=== PATIENT | female | born 1940 | race Caucasian/White ===

== ENCOUNTER 2017-01-22 16:59 | Inpatient (IN) | payer OTHER ==
[~2017-01-22] VITALS: Ht 170.2 cm; Wt 69.9 kg
--- NOTE | ~2017-01-22 | HC ---
[facility] [place] [address] CONSULTATION Name: SUSAN ULLOA Room #: 209-P [facility] IN ..#: [id number] Admission: 01/22/17 Attend Phys: Owen Mcnair MD Discharge: 01/26/17 Date of : 36 Report #: [id number] THIS REPORT FOR: //name// CC: Owen Carlisle CONSULTING PHYSICIAN: Mani Logan MD [facility]. ATTENDING PHYSICIAN: Fabiana Randhawa MD. REASON FOR CONSULTATION: Chronic kidney disease. HISTORY OF PRESENT ILLNESS: A 76-year-old patient with chronic atrial fibrillation and worsening cardiac performance, has known chronic kidney disease with a baseline creatinine of more or less in the range of 1.6 on admission here last year. She has seen a cnc router operator as an outpatient. She is now admitted with worsening weight loss, shortness of breath and elevating creatinine from a baseline of 1.6 up to about 2.0. This is in the setting of worsening cardiac performance and with her chronic atrial fibrillation and now markedly decreasing ejection fraction. PAST MEDICAL HISTORY: She has known coronary artery disease. She has had several stents in the past. She really cannot give an exact number and known coronary artery disease. She had ejection fraction of 45% last year, now only 15%. She has had longstanding hypertension, dyslipidemia, previous thyroidectomy and hypothyroidism. HOME MEDICATIONS: Include Xarelto, atorvastatin, Synthroid and digoxin. FAMILY HISTORY: Positive for heart disease. Negative for renal disease. SOCIAL HISTORY: , heavy smoker until the last couple of years. No alcohol. Lives by herself. REVIEW OF SYSTEMS: GENERAL: She has been feeling poorly and she has been weak. EYES: Her vision is pretty good. ENT: Hearing okay, swallows okay. No mouth sores or ulcers. ENDOCRINE: No diabetes. She does have thyroid disease as mentioned. RESPIRATORY: Easily short-winded with any exertion, chronic cough, no hemoptysis. CARDIAC: No angina. She does have a chronic irregular heartbeat, chronic atrial fibrillation as mentioned. GASTROINTESTINAL: Very poor appetite, occasional dry heaves, constipation. GENITOURINARY: Good urinary stream. No dysuria, hematuria or history of renal stones. NEUROLOGIC: Generalized weakness, but no seizure, syncope, stroke or peripheral [facility] [address] [place] [address] CONSULTATION Name: SUSAN ULLOA Room #: 209-P [facility]#: [id number] Admission: 01/22/17 Attend Phys: Owen Mcnair MD Discharge: 01/26/17 Date of : 36 Report #: [id number] neuropathy. SKELETAL: No arthritis. Does not use anti-inflammatories. PHYSICAL EXAMINATION: GENERAL: This is a thin, wasted appearing, chronically ill, elderly woman in no acute distress, somewhat hard of hearing. SKIN: Unremarkable. SKELETAL: Well developed, well nourished. HEENT: Extraocular movements are full. Vision grossly intact. Hearing is diminished. Mucous membranes are moist. Tongue, buccal mucosa benign. NECK: Supple, no carotid bruits. CHEST: Shows some fine crackles at the lung bases. HEART: Irregularly irregular. ABDOMEN: Soft and nontender. EXTREMITIES: Show no edema. There is diminishment of the peripheral pulses. LABORATORY DATA: Hemoglobin is 12.6, white count 7.9, platelets 146. Sodium 139, potassium 4.9, chloride 105, bicarbonate 26, BUN 60, creatinine 2, calcium 8.1. Transaminases are okay, but albumin is only 2.3. Troponin I was mildly elevated at 1.47. ASSESSMENT AND PLAN: 1. Chronic kidney disease. She has chronic kidney disease now exacerbated by her worsening coronary performance in the setting of somewhat atrophic kidneys on previous renal sonogram. For completeness, paraprotein studies, urine protein studies, urinalysis are ordered. I suspect there may not be much to do acutely or even chronically for her kidney problems which are certainly exacerbated by her severe chronic obstructive pulmonary disease and her worsening cardiac performance with systolic and diastolic dysfunction and arrhythmia. Some degree of palliative type care will probably be indicated in this unfortunately and I do not think chronic dialysis would be indicated here if needed. 2. Pericardial effusion. I am wondering if this may be playing some role and certainly right heart catheterization must be considered. 3. Markedly decreased ejection fraction. I believe this is pretty fixed and chronic and I do not believe heart catheterization would be indicated here either given the overall chronic looking picture. 4. History of thyroidectomy. 5. Chronic atrial fibrillation, on anticoagulation. I would restart her anticoagulation probably. <ELECTRONICALLY SIGNED> By: Henry Bustillo MD 01/29/17 1048 1103 1240 Henry Bustillo MD /nt
--- NOTE | ~2017-01-22 | EKG ---
[address] [address] ELECTROCARDIOGRAM REPORT Name: SUSAN ULLOA Room #: 209-[facility] IN M.R.#: [id number] Admission: 01/22/17 Attend Phys: Owen Mcnair MD Discharge: Date of : 36 Report #: [id number] THIS REPORT FOR: //name// [facility] Test Date: 2017-01-22 Test Time: 21:05:43 Pat Name: SUSAN ULLOA Department: Room: 209 Gender: F Desktop Administrator: fausto : 1940 Requested By: Talib Lopez Order Number: [id number] MD: Brian Herrera Measurements Intervals [place] Rate: 97 P: CT: QRS: -40 QRSD: 147 T: 147 QT: 386 QTc: 491 Interpretive Statements Atrial fibrillation Left bundle branch block Compared to ECG 01/09/2016 13:29:09 Left bundle-branch block now present Myocardial infarct finding no longer present Prolonged QT interval no longer present Electronically Signed On 01-24-2017 9:51:07 CDT by Brian Herrera [email or web address] <ELECTRONICALLY SIGNED> By: Brian Herrera MD 01/24/17 0951 04 04 Brian Herrera MD /EPI
--- NOTE | ~2017-01-22 | CARDNUC ---
[facility] [place] [address] CARDIAC NUCLEAR IMAGING REPORT Name: SUSAN ULLOA Room #: 209-P [facility]#: [id number] Admission: 01/22/17 Attend Phys: Owen Mcnair MD Discharge: Date of : 36 Date of Service: 01/24/17 1610 Report #: [id number] THIS REPORT FOR: //name// CC: Owen Carlisle DATE OF SERVICE: 01/24/2017 PRIMARY LEAD FORMER: Perry Ambrocio MD [facility]. INDICATIONS: Ischemic cardiomyopathy, shortness of breath, congestive heart failure. RISK FACTORS: Include age, hyperlipidemia, hypertension, tobacco use. PRIOR MEDICATIONS: Include digoxin, atorvastatin, carvedilol. LEXISCAN STUDY: 0.4 mg was infused over approximately 10 seconds. There was no treadmill exercise. During the infusion, there were no complaints of chest discomfort. The patient's underlying rhythm was sinus. Resting blood pressure was 118/67 with heart rate 83. Peak infusion blood pressure was 110/54, heart rate 92. Recovery blood pressure 123/55 with heart rate of 93. Resting ECG demonstrates sinus rhythm, left bundle branch block. During the infusion, this did not deviate. The ECG portion was nondiagnostic. The patient underwent a single-day gated-SPECT protocol with a rest dose of 11.1 mCi of IV Cardiolite and a stress dose of 32.6 mCi of IV Cardiolite. Stress dose was injected at peak infusion and the patient was imaged in the supine and prone position. FINDINGS: Review of the raw dataset reveals a fairly good technical quality study with minimal motion. There was a moderate amount of extracardiac uptake. There was a small amount of spilled isotope seen on raw data only,planar images.Likely on pt's gown. Review of the SPECT dataset at rest reveals a small, but severe defect involving the apex. It is noted to be mostly fixed. There are no significant reversible defects. There was uniform perfusion in other segments. Gated portion of the study demonstrates global severe LV dysfunction without any segmental wall motion abnormalities. Ejection fraction is 25%. There is elevated end diastolic volume. TID is normal at 0.95. IMPRESSION: 1. Clinical portion negative. [address] [address] CARDIAC NUCLEAR IMAGING REPORT Name: SUSAN ULLOA Room #: 209-P [facility] IN [facility]#: [id number] Admission: 01/22/17 Attend Phys: Owen Mcnair MD Discharge: Date of : 36 Date of Service: 01/24/17 1610 Report #: [id number] 2. Electrocardiographic portion was nondiagnostic. 3. Nuclear portion was negative for ischemia. 4. Exercise capacity not formally assessed. In conclusion, this study reveals findings compatible with a mixed defect involving an apical myocardial infarction without significant periinfarct ischemia and severe global LV dysfunction. Ejection fraction is 25%. Based on the patient's LV dysfunction, this patient's study is considered higher risk. <ELECTRONICALLY SIGNED> By: Mani Logan MD, FACC 01/26/17 0848 1610 1920 Mani Logan MD, FACC /nt
--- NOTE | ~2017-01-22 | 2DMMODE ---
[facility] [address] [place] [address] 2 D/M-MODE ECHOCARDIOGRAM Name: SUSAN ULLOA Room #: 209-P ADM IN M.R.#: [id number] Admission: 01/22/17 Attend Phys: Fabiana Avelar Discharge: Date of : 36 Date of Service: 01/23/17 1620 Report #: [id number] THIS REPORT FOR: //name// APPROVED REPORT Study performed: 01/23/2017 09:58:06 EXAM: Comprehensive 2D, Doppler, and color-flow Echocardiogram Patient Location: Bedside Room #: 209 Blood Pressure: 84/47 mmHg HR: 78 bpm Indications COPD Atrial Fibrillation CAD 2D Dimensions RVDd: 32.75 mm LVEF(%): 30.31 (>50%) IVSd: 11.43 (7-11mm) LVOT Diam: 19.75 (18-24mm) LVDd: 51.75 mm PWd: 11.22 (7-11mm) Ascending Ao: 29.64 (22-36mm) LVDs: 44.33 (25-40mm) Aortic Root: 29.42 mm IVC: 20.00 mm Wise's LVEF: 30.31 % Volumes Left Atrial Volume (Systole) Single Plane 4CH: 96.68 mL Single Plane 2CH: 69.26 mL LA ESV Index: 50.00 mL/m2 Aortic Valve AoV Peak Jacques.: 1.49 m/s AO Peak Gr.: 8.96 mmHg LVOT Max P.96 mmHg LVOT Max V: 0.49 m/s OPAL Vmax: 1.00 cm2 AI Vmax: 3.98 m/s AI [place]: 2.42 m/s2 AI PHT: 478.97 ms Mitral Valve [facility] [address] [address] 2 D/M-MODE ECHOCARDIOGRAM Name: SUSAN ULLOA Room #: 209-[facility] IN [facility].#: [id number] Admission: 01/22/17 Attend Phys: Fabiana Avelar Discharge: Date of : 36 Date of Service: 01/23/17 1620 Report #: [id number] MV Decel. Time: 188.96 ms MV E Max Jacques.: 1.10 m/s Pulmonary Valve PV Peak Jacques.: 0.78 m/s PV Peak Gr.: 2.44 mmHg Tricuspid Valve TR Peak Jacques.: 2.36 m/s RAP Estimate: 10.00 mmHg TR Peak Gr.: 22.48 mmHg Left Ventricle Left ventricle is severely dilated. There is global hypokinesis of the left ventricle. There is normal left ventricular wall thickness. There is no ventricular septal defect visualized. Left ventricular systolic function is decreased. No left ventricle thrombus noted on this study. LVEF is 15-20%. Grade III - reversible restrictive diastolic dysfunction. Right Ventricle Right ventricle is moderately dilated. There is normal right ventricular wall thickness. The right ventricular systolic function is normal. Atria Left atrium is dilated. The interatrial septum is intact with no evidence for an atrial septal defect. Right atrium is dilated. Aortic Valve The Aortic valve is sclerotic. Moderate aortic regurgitation. There is no aortic valvular vegetation. There is no aortic valvular stenosis. Mitral Valve The mitral valve is normal in structure. Moderate mitral regurgitation. There is no evidence of mitral valve vegetations. No evidence of mitral valve stenosis. There is no evidence of mitral valve prolapse. Tricuspid Valve The tricuspid valve is normal in structure. There is no tricuspid valve stenosis. There is moderate tricuspid regurgitation. The right atrial pressure is estimated at 10 mmHg. There is no pulmonary hypertension. Est PAP was 32 mmHg. There is no tricuspid valve vegetations. [address] [address] 2 D/M-MODE ECHOCARDIOGRAM Name: SUSAN ULLOA Room #: 209-P [facility] IN [facility]#: [id number] Admission: 01/22/17 Attend Phys: Fabiana Avelar Discharge: Date of : 36 Date of Service: 01/23/17 1620 Report #: [id number] Pulmonic Valve Pulmonic valve is not well visualized. There is no pulmonic valvular stenosis. Mild pulmonic regurgitation. There is no pulmonic valve vegetations. Great Vessels The aortic root is normal in size. The ascending aorta is normal in size. IVC is normal in size and collapses <50% with inspiration. The pulmonary artery is normal. Pericardium Mild circumferential pericardial effusion. There is no pleural effusion. <Conclusion> LVEF is 15-20%. There is global hypokinesis of the left ventricle. No left ventricle thrombus noted on this study. Left atrium is dilated. Right atrium is dilated. Right ventricle is moderately dilated. There is no aortic valvular stenosis. Moderate aortic regurgitation. Grade III - reversible restrictive diastolic dysfunction. Mild circumferential pericardial effusion. There is no pleural effusion. <ELECTRONICALLY SIGNED> By: Mani Logan MD, FACC 01/23/17 1620 162 162 Mani Logan MD, FACC /INF
--- NOTE | ~2017-01-22 | HC ---
[facility] [place] [address] CONSULTATION Name: SUSAN ULLOA Room #: 209-P ADM IN .R.#: [id number] Admission: 01/22/17 Attend Phys: Owen Mcnair MD Discharge: Date of : 38 Report #: [id number] THIS REPORT FOR: //name// CC: Fabiana Carlisle PRIMARY CARE PHYSICIAN: Dr. Joce Carlisle. PRIMARY PURIFICATION OPERATOR HELPER: Dr. Perry Ambrocio. CHIEF COMPLAINT: Shortness of breath. HISTORY OF PRESENT ILLNESS: The patient is a 76-year-old female with a history of coronary artery disease and chronic obstructive pulmonary disease and atrial fibrillation, was transferred from [facility] with increasing shortness of breath and abnormal cardiac troponin level. She presented there apparently with 3-4 days of increasing dyspnea with exertion. She uses oxygen 2 liters chronically. She had been losing weight. We were asked to see her in transfer for as her lab became abnormal and that her cardiac troponin level was elevated at 1.47. For her atrial fibrillation, she is rate controlled and anticoagulated with Xarelto. She did take her dose yesterday. She was last seen by Dr. Ambrocio in our office in 2016. Clinically, she denied chest pain or pressure, but has been short of breath over the last 3-5 days. PAST MEDICAL HISTORY: Significant for coronary artery disease in 2009. She had a PCI to her LAD. She has persistent atrial fibrillation. She has a history of mild LV dysfunction. Her ejection fraction in 2015 and was 45%. She has hypertension, hyperlipidemia, and hypothyroidism. PAST SURGICAL HISTORY: Prior thyroidectomy and mastoidectomy. HOME MEDICATIONS: Include Xarelto 15 mg daily, Lasix 20 mg a day, iron, Coreg 25 mg p.o. b.i.d., digoxin 125 mcg daily, Voltaren p.r.n., atorvastatin 40 mg daily, Synthroid 100 mcg daily, nitroglycerin p.r.n. REVIEW OF SYSTEMS: GASTROINTESTINAL: Positive weight loss. No abdominal pain. NEUROLOGIC: Denies slurred speech or weakness. [facility] [address] [place] [address] CONSULTATION Name: SUSAN ULLOA Room #: 209-P [facility]#: [id number] Admission: 01/22/17 Attend Phys: Owen Mcnair MD Discharge: Date of : 36 Report #: [id number] EARS: Positive hearing loss and use of hearing aids. CARDIOVASCULAR: No chest pain. Positive dyspnea with exertion. Positive PND, no edema. NEUROLOGIC: Syncope or seizures. RENAL: She presents with a creatinine of 2.0. ALLERGIES: Denies any aspirin or contrast allergies. HEMATOLOGIC: Positive for anemia. GASTROINTESTINAL: Positive for remote endoscopy for anemia workup. SKIN: No rashes. GENERAL: No fevers or chills. PULMONARY: Positive cough, positive dyspnea on exertion. Positive COPD. No hemoptysis. FAMILY HISTORY: Positive for [place] in brothers. SOCIAL HISTORY: She is a remote smoker. ALLERGIES: She has no known drug allergies. PHYSICAL EXAMINATION: VITAL SIGNS: O2 sat on 3 liters is 100%, blood pressure is 92/59, pulse is 76, temperature is 36.4, respiratory rate is 14. GENERAL: The patient is sitting in a chair, alert, oriented, and hard of hearing. HEENT: There is no facial asymmetry. Sclerae are anicteric. NECK: Supple. There is no jugular venous distention. CARDIOVASCULAR: Regular. I cannot hear a murmur or rub. LUNGS: Clear to auscultation. Diminished breath sounds. ABDOMEN: Nontender and nondistended. EXTREMITIES: There is no peripheral edema. There is some peripheral wasting. DIAGNOSTIC DATA: Electrocardiogram demonstrated left bundle branch block and atrial fibrillation in 80s. LABORATORY DATA: Hemoglobin is 12.4, white blood count is 6.5, platelet count is 146,000. Her sodium is 140, potassium is 4.3, chloride is 105, CO2 is 27, BUN is 63, creatinine is 2.3, AST is 46, ALT is 50. Troponin I is 1.47. NT-proBNP is 36,869. She had a CT of her chest, abdomen and pelvic, which demonstrated cardiomegaly and "marked" pericardial effusion. There is thickening of the gallbladder with cholelithiasis, mediastinal lymphadenopathy, scattered ground glass opacity nodules. IMPRESSION: 1. Abnormal troponin. This could be secondary to congestive heart failure exacerbation versus an acute coronary syndrome. She has a history of remote PCI. Her symptoms present more like a congestive heart failure exacerbation [facility] [address] [place] [address] CONSULTATION Name: SUSAN ULLOA Room #: 209-P ADM IN .R.#: [id number] Admission: 01/22/17 Attend Phys: Owen Mcnair MD Discharge: Date of : 36 Report #: [id number] with increasing shortness of breath and certainly elevated BNP levels were compatible with this. I would like to check an echocardiogram to assess LV function. Her presenting ECG has a left bundle branch block. Discussions regarding an invasive evaluation at this current time would be somewhat risky given her acute kidney injury. 2. Acute on chronic systolic congestive heart failure. I will check an echocardiogram to assess LV function and the status of this pericardial effusion. Her blood pressure was low, so usual therapies, at this point in time, would not necessarily be tolerated very well. I would like to continue with her carvedilol. 3. Acute kidney injury. I think overall her lung sound fairly clear. I would gingerly rehydrate her over the next 24 hours and consider rechecking a creatinine to decide whether or not, she would be safe for an invasive evaluation. We may need to involve our nephrology colleagues. 4. Pericardial effusion. We will check an echocardiogram. 5. Weight loss. I will defer malignancy workup to our hospital colleagues. 6. Shortness of breath. This is multifactorial. She has underlying lung disease. She has likely a component of congestive heart failure as well with likely severe left ventricular dysfunction. <ELECTRONICALLY SIGNED> By: Mani Logan MD, [facility] 01/26/17 0850 0912 1837 Mani Logan MD, FACC /nt
[2017-01-22 16:45] VITALS: BP 109/65
[~2017-01-22 16:59] MED LIST: ALDACTONE25 MG PO; ASPIR 8181 MG PO; ATORVASTATIN CA40 MG PO; AZITHROMYCIN 2250 MG PO; CEFTIN 250 MG250 MG PO; COREG25 MG PO; DIGITEK125 MC2 PO; DUONEB 2.5-0.5 M3 ML INH; HYDROCODONE-AP1 EAC6 PO; IRON325 PO; LASIX 20 MG TAB20 MG; LEVOTHYROXINE 0.1 MG PO; LISINOPRIL20 MG PO; MIRALAX255 GM; PROAIR HFA8.5 GM; SENNA8.6 MG; SORINE 80 MG TA80 M1 PO; TYLENOL325 MG PO; VOLTAREN GEL 1100 G2; XARELTO15 MG PO
[2017-01-22 19:38] VITALS: BP 96/58
[2017-01-22 21:23] LABS: HEMATOCRIT 40.6 % (37.0-47.0); HEMOGLOBIN 13.5 gm/dL (12.0-15.0); MCH 31.2 pg (26.0-34.0); MCHC 33.3 g/dL (28.0-37.0); MCV 93.7 fL (80.0-100.0); RBC 4.33 mil/uL (4.20-5.00); RDW 14.7 % (10.5-14.5); WBC 6.9 thou/uL (4.0-11.0)
[2017-01-22 21:47] LABS: ALBUMIN 2.6 g/dL (3.4-5.0); CALCIUM 8.6 mg/dL (8.5-10.1); CREATININE 2.3 mg/dL (0.6-1.0); POTASSIUM 4.4 mmol/L (3.5-5.1); TOTAL BILIRUBIN 0.5 mg/dL (<0.1-1.0); TOTAL PROTEIN 6.3 g/dL (6.4-8.2)
[2017-01-22 23:20] VITALS: BP 86/51
[2017-01-23 04:07] LABS: HEMOGLOBIN 12.5 gm/dL (12.0-15.0); MCH 31.3 pg (26.0-34.0); MCV 95.1 fL (80.0-100.0); RDW 15.1 % (10.5-14.5); WBC 6.5 thou/uL (4.0-11.0)
[2017-01-23 04:13] LABS: ALBUMIN 2.3 g/dL (3.4-5.0); CALCIUM 8.2 mg/dL (8.5-10.1); CREATININE 2.3 mg/dL (0.6-1.0); POTASSIUM 4.3 mmol/L (3.5-5.1); TOTAL BILIRUBIN 0.5 mg/dL (<0.1-1.0); TOTAL PROTEIN 5.8 g/dL (6.4-8.2)
[2017-01-23 04:23] VITALS: BP 84/47
[2017-01-23 08:17] VITALS: BP 92/59
[2017-01-23 12:17] VITALS: BP 93/59
[2017-01-23 19:47] VITALS: BP 94/60
[2017-01-24 03:00] LABS: HEMATOCRIT 38.3 % (37.0-47.0); HEMOGLOBIN 12.6 gm/dL (12.0-15.0); MCH 31.1 pg (26.0-34.0); MCHC 32.9 g/dL (28.0-37.0); MCV 94.6 fL (80.0-100.0); RBC 4.04 mil/uL (4.20-5.00); RDW 14.7 % (10.5-14.5); WBC 7.9 thou/uL (4.0-11.0)
[2017-01-24 03:09] LABS: CALCIUM 8.1 mg/dL (8.5-10.1); POTASSIUM 4.9 mmol/L (3.5-5.1)
[2017-01-24 04:17] VITALS: BP 93/60
[2017-01-24 07:30] VITALS: BP 93/53
[2017-01-24 11:01] LABS: CALCIUM 8.4 mg/dL (8.5-10.1); CREATININE 1.9 mg/dL (0.6-1.0); POTASSIUM 4.6 mmol/L (3.5-5.1); TROPONIN-I 0.53 ng/mL (<0.04-0.07)
[2017-01-24 11:15] VITALS: BP 85/51
[2017-01-24 16:15] LABS: URINE BILIRUBIN NEGATIVE (Negative); URINE BLOOD TRACE (Negative); URINE COLOR YELLOW; URINE GLUCOSE-RANDOM* NEGATIVE (Negative); URINE KETONES NEGATIVE (Negative); URINE NITRITE NEGATIVE (Negative); URINE PROTEIN (DIPSTICK) NEGATIVE (Negative); URINE SPECIFIC GRAVITY 1.015 (1.003-1.035)
[2017-01-24 16:20] VITALS: BP 105/63
[2017-01-24 16:21] LABS: SQUAMOUS 4-10 Moderate /LPF (0-3)
[2017-01-24 16:22] LABS: BACTERIA 1-9 Few /HPF (None Seen); CALCIUM OXALATE 0-3 Few /LPF (None Seen); CASTS None Seen /LPF (None Seen); URINE RBC 0-2 Rare /HPF (0-2)
[2017-01-24 20:10] VITALS: BP 117/57
[2017-01-25] VITALS (7 sets, daily range): BP systolic 94–103; BP diastolic 52–60
[2017-01-25 03:23] LABS: HEMATOCRIT 35.2 % (37.0-47.0); HEMOGLOBIN 11.6 gm/dL (12.0-15.0); MCH 31.2 pg (26.0-34.0); MCHC 32.8 g/dL (28.0-37.0); MCV 95.1 fL (80.0-100.0); RBC 3.7 mil/uL (4.20-5.00); RDW 14.5 % (10.5-14.5); WBC 6.9 thou/uL (4.0-11.0)
[2017-01-25 03:51] LABS: ALBUMIN 2.2 g/dL (3.4-5.0); CALCIUM 7.9 mg/dL (8.5-10.1); CREATININE 1.8 mg/dL (0.6-1.0); PHOSPHORUS 3.5 mg/dL (2.5-4.9); POTASSIUM 4.5 mmol/L (3.5-5.1)
[2017-01-25 06:09] LABS: URINE CREATININE-RANDOM* 73.9 mg/dL (Not Estab.); URINE PROTEIN-RANDOM* 13.4 mg/dL (Not Estab.)
[2017-01-25 15:10] LABS: KAPPA FREE LIGHT CHAINS 57.25 mg/L (3.30-19.40); KAPPA/LAMBDA RATIO 1.3 (0.26-1.65); LAMBDA FREE LIGHT CHAINS 44.07 mg/L (5.71-26.30)
[2017-01-26 04:04] LABS: HEMATOCRIT 33.1 % (37.0-47.0); HEMOGLOBIN 11.1 gm/dL (12.0-15.0); MCH 32.1 pg (26.0-34.0); MCHC 33.7 g/dL (28.0-37.0); MCV 95.3 fL (80.0-100.0); RBC 3.47 mil/uL (4.20-5.00); RDW 14.6 % (10.5-14.5); WBC 6.4 thou/uL (4.0-11.0)
[2017-01-26 04:06] LABS: ALBUMIN 2.1 g/dL (3.4-5.0); CALCIUM 7.9 mg/dL (8.5-10.1); CREATININE 1.5 mg/dL (0.6-1.0); PHOSPHORUS 3.3 mg/dL (2.5-4.9); POTASSIUM 4.6 mmol/L (3.5-5.1)
[2017-01-26 08:23] VITALS: BP 102/54
[2017-01-26 12:00] VITALS: BP 105/62
[2017-01-26] MEDS ORDERED: CEFUROXIME250 MG PO (12:48)
[2017-01-26] MEDS ORDERED: LASIX 40 MG TAB40 M1 PO (12:49)
[2017-01-26 13:09] VITALS: BP 105/62
[2017-01-26 15:59] VITALS: BP 105/62
[2017-01-26 16:37] VITALS: BP 105/75
[2017-01-29 09:06] LABS: A/G RATIO 0.9 (0.7-1.7); ALBUMIN 2.5 g/dL (2.9-4.4); ALPHA 1 0.2 g/dL (0.0-0.4); ALPHA 2 0.7 g/dL (0.4-1.0); BETA 0.7 g/dL (0.7-1.3); GAMMA 1.2 g/dL (0.4-1.8); M-SPIKE Not Observed g/dL (Not Observed)
== END 2017-01-26 20:10 | disposition home health service (06) | DRG 280 ==
LOC: 2N 16:59
PROVIDERS: Hospitalist; Internal Medicine; Internal Medicine Cardiovascular Disease; Internal Medicine Nephrology; Nurse Practitioner Acute Care
DX: I21.4 Non-ST elevation (NSTEMI) myocardial infarction (principal); I50.23 Acute on chronic systolic (congestive) heart failure; E43 Unspecified severe protein-calorie malnutrition; I31.3 Pericardial effusion (noninflammatory); N17.9 Acute kidney failure, unspecified; I13.0 Hypertensive heart and chronic kidney disease with heart failure and stage 1 through stage 4 chronic kidney disease, or unspecified chronic kidney disease; E78.5 Hyperlipidemia, unspecified; I48.2 Chronic atrial fibrillation; N18.9 Chronic kidney disease, unspecified; I25.10 Atherosclerotic heart disease of native coronary artery without angina pectoris; J44.9 Chronic obstructive pulmonary disease, unspecified; E03.9 Hypothyroidism, unspecified; I25.2 Old myocardial infarction; Z85.828 Personal history of other malignant neoplasm of skin; Z87.891 Personal history of nicotine dependence; Z79.01 Long term (current) use of anticoagulants; Z82.49 Family history of ischemic heart disease and other diseases of the circulatory system; Z95.5 Presence of coronary angioplasty implant and graft; Z68.24 Body mass index [BMI] 24.0-24.9, adult; Z79.899 Other long term (current) drug therapy
CPT/HCPCS: 10081

== ENCOUNTER → 2017-02-09 | Outpatient (CLI) | payer OTHER ==
[~2017-02-09] VITALS: Ht 170.2 cm; Wt 62.1 kg
[~2017-02-09] MED LIST changes: +CEFUROXIME250 MG PO; +LASIX 40 MG TAB40 M1 PO; +LISINOPRIL2.5 MG PO; +REQUIP 0.25 M0.25 MG PO; +VENTOLIN HFA 1818 GM INH
--- NOTE | ~2017-02-09 | H ---
[facility] [place] [address] HISTORY AND PHYSICAL Name: SUSAN ULLOA Room #: REG RAMSEY Melissa.#: [id number] Admission: 02/09/17 Attend Phys: Perry Ambrocio MD, FA Discharge: Date of : 38 Report #: [id number] THIS REPORT FOR: //name// CC: Perry Carlisle MD HISTORY OF PRESENT ILLNESS: The patient is a 76-year-old single white female who was brought to the outpatient department to undergo repeat cardiac catheterization. The patient apparently had a coronary artery stent placed at [facility] in 2000. She apparently had a second stent placed a year later. She apparently was followed by Dr. Coleman at that time. She actually had repeat heart catheterization in 2009 in [facility], [place], which showed a stent in the LAD to be patent. However, the stent in the right coronary artery was chronically occluded, filled by collaterals. There was normal left ventricular function. She presented to [facility] in October 2014 when she was noted to be in atrial fibrillation. I saw her in consultation and she started on diltiazem for rate control. She was started on sotalol and anticoagulated with Xarelto. She then converted to sinus rhythm. Echocardiogram showed an ejection fraction of 45%. She was then discharged on sotalol and Xarelto. However, she subsequently developed a junctional rhythm, was taken off of sotalol. She was admitted to [facility] in 2015 with atrial fibrillation. An echocardiogram at that time showed an ejection fraction of only 30%. She was placed on digoxin for rate control. It was decided not to attempt for repeat cardioversion. Recently, she noticed increasing shortness of breath. She had a cough, but no significant edema. She was awakened up at night short of breath. Because of increasing shortness of breath. She recently went to the Emergency Room in [facility], was found to be in atrial fibrillation with an increased ventricular response rate. Her troponin was elevated. She was admitted here to [facility], was seen by my partner, Dr. Logan. Her workup at that time included a nuclear stress test on January. This showed small apical defect. It was noted to be fixed. There is no reversible defects. Ejection fraction of only 25%. She also underwent an echocardiogram that showed ejection fraction 20%, biatrial enlargement. The right ventricle is dilated, moderate aortic insufficiency. Because of her history of coronary artery disease and significant decrease in left ventricular systolic function, is recommended she undergo repeat cardiac catheterization. She does note frequent episodes of chest pressure. It is not related to food. She has had no bleeding. She has had no significant edema. She denied any palpitations or syncope. PAST MEDICAL HISTORY: Otherwise significant for thyroidectomy, mastoidectomy, cataract extraction, arthritis, hypertension, hyperlipidemia, hyperthyroidism. CURRENT MEDICATIONS: Consists of Synthroid, ProAir, Xarelto, which was stopped 3 days ago, Lasix, carvedilol, digoxin, Ventolin inhaler, and ropinirole. [facility] [address] [place] [address] HISTORY AND PHYSICAL Name: SUSAN ULLOA Room #: REG CLI Isaura#: [id number] Admission: 02/09/17 Attend Phys: Perry Ambrocio MD, FA Discharge: Date of : 38 Report #: [id number] ALLERGIES: She has no known drug allergies. FAMILY HISTORY: She had a sibling who had a heart attack. SOCIAL HISTORY: She is , lives in [place], [place] by herself in an apartment, quit smoking 3 years ago. No alcohol abuse. REVIEW OF SYSTEMS: She has had no history of stroke. She uses a walker. She has a history of asthma. She has a history of anemia. Previous colonoscopy showed colon polyps. She has had a previous EGD showing no bleeding. She has had no history of liver disease. She has chronic kidney disease. She had a skin cancer in the past. No psychiatric illness. PHYSICAL EXAMINATION: GENERAL: Revealed an elderly female. VITAL SIGNS: Blood pressure 118/70, pulse is 80 and irregular, respirations are nonlabored. HEENT: Mucous membranes are moist. NECK: Veins nondistended. No carotid bruits. Neck was supple. CHEST: Clear to auscultation. CARDIOVASCULAR: Irregular rhythm. ABDOMEN: Soft. EXTREMITIES: Had no edema. Dorsalis pedis pulse 1+ bilaterally. SKIN: Cool and dry. LABORATORY DATA: Her recent workup, she had abdominal ultrasound done 2 weeks ago that showed gallstones, no bile duct dilatation, kidneys were atrophic without hydronephrosis. CT scan of the chest done 2 weeks ago without contrast showed gallstones, cardiomegaly. There was evidence of pericardial effusion, mediastinal adenopathy, thyroid nodule. She had a chest x-ray that showed interstitial infiltrates. She had lab work done 2 weeks ago that showed sodium 138. BUN 25, creatinine 1.5, her albumin 2.1, digoxin level 2.0. White blood cell count 5.8, hemoglobin 15. IMPRESSION AND RECOMMENDATIONS: 1. Atrial fibrillation. Rate controlled with digoxin and . The patient has been anticoagulated. 2. Cardiomyopathy. In the past, the patient cannot tolerate an LIONEL inhibitor nor ARB because of low blood pressure. The patient has been on a beta rodriguez. I would not recommend Bactrim because of chronic kidney disease. 3. Coronary artery disease. The patient has frequent chest pressure despite medical therapy. I would recommend repeat cardiac catheterization. 4. History of anemia. No recent bleeding. 5. Hyperlipidemia. The patient is no longer on a statin drug. 6. Chronic kidney disease. The patient has been seen by nephrology in the [facility] [address] [place] [address] HISTORY AND PHYSICAL Name: SUSAN ULLOA WINONA Room #: REG CLI [facility].#: [id number] Admission: 02/09/17 Attend Phys: Perry Ambrocio MD, FA Discharge: Date of : 38 Report #: [id number] past. 7. Previous tobacco abuse. Unfortunately, the patient no longer smokes. By: 0728 0949 Perry Ambrocio MD, FACC /nt
--- NOTE | ~2017-02-09 | CATHLAB ---
[facility] [place] [address] INVASIVE PROCEDURE REPORT Name: SUSAN ULLOA Room #: REG CL Angelique#: [id number] Admission: 02/09/17 Attend Phys: Perry Ambrocio MD Discharge: Date of : 38 Date of Service: 02/09/17 0917 Report #: [id number] THIS REPORT FOR: //name// CC: Perry Carlisle MD DATE OF SERVICE: 02/09/2017 IMPRESSION: Coronary artery disease manifested by 50% stenosis of the distal left main artery. There was a stent in the mid left anterior descending artery that appeared to be subtotally occluded with minimal antegrade flow. The circumflex had a 50% stenosis. There was a 60% stenosis noted of the right coronary artery. PROCEDURE DICTATION TITLE: Retrograde left heart catheterization with selective coronary arteriograms via the left radial artery. PROCEDURE: The patient was brought to the cardiac catheterization lab in a fasting state and the left wrist area was cleaned with ChloraPrep and sterilely draped in usual fashion. The area was anesthetized with 1% lidocaine and a 6-Paraguayan sheath was placed into the left radial artery using the percutaneous technique. The patient was given a cocktail of verapamil and nitroglycerin through side port of arterial sheath. A 6-Paraguayan JR4 diagnostic catheter was then inserted through the arterial sheath over a guidewire to within the ascending aorta. The patient was given heparin 50 units per kilogram intravenously. This catheter used to engage the ostium of the right coronary artery. Several views were then taken of the right coronary artery using Visipaque. This catheter was then advanced across the aortic valve to within the left ventricle and left ventricular end diastolic pressures then recorded. This catheter was then pulled back from the left ventricle to the ascending aorta using continued pressure recording. This catheter was then removed and exchanged over a guidewire for a 6-Paraguayan JL4 diagnostic catheter, which was inserted through the arterial sheath over a guidewire to the ostium of the left main artery. Several views were then taken of the left coronary artery using Visipaque. This catheter was then removed over a guidewire and the patient was given another cocktail of verapamil and nitroglycerin through side port of the arterial sheath. The sheath was removed and hemostasis achieved by applying a Vasc band. The patient left the cardiac catheterization lab in stable condition. RESULTS: 1. Hemodynamics: Left ventricular end diastolic pressure was 18 mmHg. There was no gradient across the aortic valve. 2. Coronary arteriograms: The right coronary artery appeared to have moderate calcification. There was noted to be a 30% stenosis of the proximal right [address] [address] INVASIVE PROCEDURE REPORT Name: SUSAN ULLOA RED Room #: REG CL Isaura#: [id number] Admission: 02/09/17 Attend Phys: Perry Ambrocio MD Discharge: Date of : 38 Date of Service: 02/09/17 0917 Report #: [id number] coronary artery. Prior to the right ventricular branch, there was a tubular concentric 60% stenosis. There was a 40% stenosis noted of the distal right coronary artery. The left main artery appeared to have an ostial 50% concentric stenosis. The left anterior descending artery was then noted to give off a small first diagonal branch, followed by a medium sized second diagonal branch. There was then a medium sized third diagonal branch that had an ostial concentric 80% stenosis. There was noted to be a long metal stent that started after the second diagonal branch and extended beyond the takeoff of the third diagonal branch. The stent had diffuse restenosis and basically was occluded after the takeoff of the third diagonal branch. Although, there appeared to be faint antegrade flow through the stent filling a small diffusely diseased apical LAD. Antegrade flow into the LAD was noted to be slow. The circumflex artery was a nondominant vessel. After a small first marginal branch, there was noted to be a large second marginal branch. There was noted to be a tubular concentric 50% stenosis that started in the circumflex and extended into the large marginal branch. Distally, there was only a small third marginal branch. 3. It was decided not to attempt angioplasty or restenting of the mid left anterior descending artery because the amount of contrast required and risks of including the large third diagonal branch with stenting. In addition, it appeared that the apical LAD was a small vessel, diffusely diseased. By: 0917 1259 Perry Ambrocio MD, FACC /nt
[2017-02-09 06:45] VITALS: BP 111/46
[2017-02-09 07:02] LABS: HEMATOCRIT 45.5 % (37.0-47.0); MCH 31.5 pg (26.0-34.0); MCHC 32.9 g/dL (28.0-37.0); MCV 95.8 fL (80.0-100.0); RBC 4.75 mil/uL (4.20-5.00); RDW 14.3 % (10.5-14.5); WBC 5.8 thou/uL (4.0-11.0)
[2017-02-09 07:11] LABS: CALCIUM 9.2 mg/dL (8.5-10.1); CREATININE 1.5 mg/dL (0.6-1.0); POTASSIUM 4.5 mmol/L (3.5-5.1)
== END | disposition home or self-care (01) ==
LOC: CATH 06:28
PROVIDERS: Internal Medicine Cardiovascular Disease
DX: I25.10 Atherosclerotic heart disease of native coronary artery without angina pectoris (principal); I13.0 Hypertensive heart and chronic kidney disease with heart failure and stage 1 through stage 4 chronic kidney disease, or unspecified chronic kidney disease; N18.9 Chronic kidney disease, unspecified; D64.9 Anemia, unspecified; I48.91 Unspecified atrial fibrillation; E78.5 Hyperlipidemia, unspecified; E03.9 Hypothyroidism, unspecified; M19.90 Unspecified osteoarthritis, unspecified site; I50.9 Heart failure, unspecified; I25.2 Old myocardial infarction; J44.9 Chronic obstructive pulmonary disease, unspecified; Z98.49 Cataract extraction status, unspecified eye; Z98.890 Other specified postprocedural states; Z82.49 Family history of ischemic heart disease and other diseases of the circulatory system; Z87.891 Personal history of nicotine dependence; Z85.828 Personal history of other malignant neoplasm of skin

== ENCOUNTER 2017-07-02 22:27 | Inpatient (IN) | payer OTHER ==
[~2017-07-02] VITALS: Ht 170.2 cm; Wt 65.3 kg
--- NOTE | ~2017-07-02 | EKG ---
[address] [address] ELECTROCARDIOGRAM REPORT Name: SUSAN ULLOA Room #: 202-P ADM IN M.R.#: [id number] Admission: 07/02/17 Attend Phys: Joaquim Peacock DO Discharge: Date of : 38 Report #: [id number] THIS REPORT FOR: //name// [facility] Test Date: 2017-07-03 Test Time: 06:24:35 Pat Name: SUSAN ULLOA Department: Room: 202 P Gender: F [employer] Worker: DESTINI : 1940 Requested By: Corazon Brothers Order Number: [id number] MD: Brian Herrera Measurements Intervals [place] Rate: 84 P: CT: QRS: -37 QRSD: 148 T: 159 QT: 396 QTc: 469 Interpretive Statements Atrial fibrillation Left bundle branch block Compared to ECG 01/22/2017 21:05:43 No significant changes Electronically Signed On 07-03-2017 8:13:03 CDT by Brian Herrera [email or web address] <ELECTRONICALLY SIGNED> By: Brian Herrera MD 07/03/17812 3 3 Brian Herrera MD /JORGE
--- NOTE | ~2017-07-02 | HC ---
[facility] [place] [address] CONSULTATION Name: SUSAN ULLOA Room #: 202-P ADM IN M.R.#: [id number] Admission: 07/02/17 Attend Phys: Joaquim Peacock DO Discharge: Date of : 38 Report #: [id number] THIS REPORT FOR: //name// CC: Joaquim Carlisle MD DATE OF SERVICE: 07/03/2017 HISTORY OF PRESENT ILLNESS: The patient is a 77-year-old single white female who came to the Emergency Room complaining of shortness of breath. The patient had a coronary stent placed in 2000 and a second stent placed a year later. She presented to [facility] in 2014 with atrial fibrillation. She converted to sinus rhythm and was started on sotalol and anticoagulated with Xarelto. Echocardiogram showed an ejection fraction of 45%. She developed a junctional rhythm, was taken off of sotalol. She was readmitted to [facility] in 2015 with atrial fibrillation. Echocardiogram at that time showed an ejection fraction of only 30%. She was placed on digoxin for rate control. She presented to [place] in January with shortness of breath. She was found to be in atrial fibrillation with rapid ventricular response rate. She was admitted to [facility], was seen by my partner, Dr. Logan. Nuclear stress test showed an apical defect, but no reversibility, ejection fraction of only 25%. I actually performed a repeat cardiac catheterization in January from the left radial artery. No ventriculogram was performed. There was a 50% narrowing of the left main artery, the stent in the LAD was subtotally occluded with minimal antegrade flow, circumflex had a 50% stenosis but the right coronary artery stent had a 60% stenosis. I recommended medical therapy. Left ventricular end-diastolic pressure was 18 mmHg. She was felt to have an ischemic cardiomyopathy, but it was decided not to implant a defibrillator because of her advanced age and poor mobility. The patient was discharged on her home medications that consisted of Xarelto for anticoagulation, Lasix, carvedilol, digoxin for rate control. She was not given an LIONEL inhibitor nor ARB because of low blood pressure in the past. She was not given spironolactone because of chronic kidney disease. The patient states that recently she has noticed increasing dyspnea. She has had no significant edema. She denies any significant chest pain or palpitations. She does have problems with lightheadedness and actually fell recently. She has had a dry cough that awaken up at night, short of breath. She does have oxygen at home. Because of these symptoms, she went to the Emergency Room, was admitted for further evaluation and treatment. She denied any recent fever or bleeding. PAST MEDICAL HISTORY: Significant for thyroidectomy, mastoidectomy, cataract extraction, hypothyroidism. MEDICATIONS: Consists of Synthroid, ProAir, Xarelto, Lasix, carvedilol, digoxin, Ventolin inhaler, ropinirole. [address] [address] CONSULTATION Name: SUSAN ULLOA TRENTON Room #: 202-P [facility] IN M.R.#: [id number] Admission: 07/02/17 Attend Phys: Joaquim Peacock DO Discharge: Date of : 38 Report #: [id number] ALLERGIES: She has no known drug allergies. FAMILY HISTORY: A sibling had a heart attack. SOCIAL HISTORY: She is , lives in [place], [place] by herself in an apartment. Quit smoking years ago. No alcohol abuse. REVIEW OF SYSTEMS: She has had no history of stroke. She uses a walker. She has a history of asthma. She has a history of anemia, history of colon polyps. No history of liver disease. She has chronic kidney disease, saw a reservoir engineering advisor in the past. She has had skin cancer removed. No psychiatric illness. PHYSICAL EXAMINATION: GENERAL: Elderly, frail-appearing female who was lying in bed. She appeared in no distress. VITAL SIGNS: She had a blood pressure of only 100/60, pulse was 80. She is afebrile. HEENT: She is anicteric. Conjunctivae are pink. Mucous membranes are dry. NECK: Veins appeared mildly distended. No carotid bruits. CHEST: Revealed basilar rales. CARDIAC: Irregular rhythm. No significant murmur. ABDOMEN: Soft. EXTREMITIES: Had no edema. Posterior tibial pulse 1+ bilaterally. SKIN: Warm, dry. NEUROLOGIC: Nonfocal. LABORATORY DATA: ECG showed atrial fibrillation with a left bundle-branch block. Her workup so far consists of sodium 143, BUN 58, creatinine 2.4. Her liver function studies are normal. Troponin 0.04. Her BNP 37,455. Her white blood cell count 5.4, hemoglobin 13.2. IMPRESSION AND RECOMMENDATIONS: 1. Xwopg-uj-sxlmhkg systolic heart failure. The patient has an ischemic cardiomyopathy. In the past, she could not tolerate LIONEL inhibitor nor ARB because of low blood pressure. I would not recommend Entresto because of her chronic kidney disease. At this time, I would consider adding nitrates and hydralazine. Her prognosis is also guarded. 2. Ischemic cardiomyopathy. The patient is on carvedilol, digoxin, Lasix and spironolactone 3. Coronary artery disease. No recent angina. Because the patient is on Xarelto, I would not recommend aspirin. 4. Chronic atrial fibrillation. Rate controlled with digoxin and a beta rodriguez. [facility] [address] [place] [address] CONSULTATION Name: SUSAN ULLOA TRENTON Room #: 202-P ADM IN M.R.#: [id number] Admission: 07/02/17 Attend Phys: Joaquim Peacock DO Discharge: Date of : 38 Report #: [id number] 5. Chronic kidney disease. 6. Previous tobacco abuse. Unfortunately, the patient no longer smokes. <ELECTRONICALLY SIGNED> By: Perry Ambrocio MD, FACC 07/03/17 1737 0949 1229 Perry Ambrocio MD, FACC /nt
[2017-07-03 03:50] LABS: HEMATOCRIT 39.8 % (37.0-47.0); HEMOGLOBIN 13.2 gm/dL (12.0-15.0); MCH 31.3 pg (26.0-34.0); MCV 94.9 fL (80.0-100.0); RBC 4.2 mil/uL (4.20-5.00); RDW 14.9 % (10.5-14.5); WBC 5.4 thou/uL (4.0-11.0)
[2017-07-03 04:15] LABS: ANION GAP 5 mmol/L (7-16); BUN 58 mg/dL (7-18); CALCIUM 8.8 mg/dL (8.5-10.1); CHLORIDE 108 mmol/L (98-107); CO2 30 mmol/L (21-32); CREATININE 2.4 mg/dL (0.6-1.0); GLUCOSE 105 mg/dL (74-106); POTASSIUM 4.6 mmol/L (3.5-5.1); SODIUM 143 mmol/L (136-145); TROPONIN-I < 0.04 ng/mL (<0.04-0.07)
[2017-07-03 04:25] VITALS: BP 112/82
[2017-07-03 05:12] VITALS: BP 107/63
[2017-07-03 08:34] VITALS: BP 89/48
[2017-07-03 11:20] VITALS: BP 86/52
[2017-07-03 15:57] VITALS: BP 92/49
[2017-07-03 19:45] VITALS: BP 102/48
[2017-07-04 03:20] LABS: ABSOLUTE NEUTROPHILS 4.8 thou/uL (1.4-8.2); BASOPHILS 0.4 % (0.0-2.0); EOSINOPHILS 1.3 % (0.0-3.0); HEMATOCRIT 39.3 % (37.0-47.0); HEMOGLOBIN 12.9 gm/dL (12.0-15.0); LYMPHOCYTES 23.9 % (24.0-44.0); MCH 31.2 pg (26.0-34.0); MCHC 32.9 g/dL (28.0-37.0); MCV 94.7 fL (80.0-100.0); MONOCYTES 7.5 % (1.0-8.0); PLATELET COUNT 147 thou/uL (150-400); POLYS 66.9 % (36.0-66.0); RBC 4.15 mil/uL (4.20-5.00); RDW 14.6 % (10.5-14.5); WBC 7.1 thou/uL (4.0-11.0)
[2017-07-04 03:22] LABS: MANUAL DIFF NO
[2017-07-04 03:26] LABS: CALCIUM 8.1 mg/dL (8.5-10.1); CREATININE 2.2 mg/dL (0.6-1.0); POTASSIUM 4.1 mmol/L (3.5-5.1)
[2017-07-04 04:39] VITALS: BP 107/50
[2017-07-04 08:12] VITALS: BP 98/50
[2017-07-04 11:49] VITALS: BP 91/55
[2017-07-04 15:46] VITALS: BP 91/59
[2017-07-04 20:00] VITALS: BP 103/61
[2017-07-05 03:59] LABS: ABSOLUTE NEUTROPHILS 4.5 thou/uL (1.4-8.2); BASOPHILS 0.2 % (0.0-2.0); HEMATOCRIT 38.7 % (37.0-47.0); HEMOGLOBIN 12.9 gm/dL (12.0-15.0); MANUAL DIFF NO; MCH 31.3 pg (26.0-34.0); MCHC 33.4 g/dL (28.0-37.0); MCV 93.8 fL (80.0-100.0); MONOCYTES 8.6 % (1.0-8.0); PLATELET COUNT 147 thou/uL (150-400); POLYS 67.2 % (36.0-66.0); RBC 4.12 mil/uL (4.20-5.00); RDW 14.6 % (10.5-14.5); WBC 6.7 thou/uL (4.0-11.0)
[2017-07-05 04:00] VITALS: BP 102/63
[2017-07-05 04:05] LABS: CALCIUM 8.1 mg/dL (8.5-10.1); CREATININE 1.9 mg/dL (0.6-1.0); MAGNESIUM 2.1 mg/dL (1.8-2.4); POTASSIUM 4.1 mmol/L (3.5-5.1)
[2017-07-05 07:33] VITALS: BP 99/57
[2017-07-05 11:31] VITALS: BP 104/63
[2017-07-05 15:21] VITALS: BP 97/59
[2017-07-05 19:55] VITALS: BP 83/51
[2017-07-05 23:04] VITALS: BP 98/55
[2017-07-06 03:01] VITALS: BP 102/61
[2017-07-06 04:02] LABS: BASOPHILS 0.3 % (0.0-2.0); EOSINOPHILS 1.5 % (0.0-3.0); HEMATOCRIT 39.8 % (37.0-47.0); HEMOGLOBIN 13.3 gm/dL (12.0-15.0); LYMPHOCYTES 24.2 % (24.0-44.0); MCH 31.4 pg (26.0-34.0); MCHC 33.4 g/dL (28.0-37.0); MCV 93.9 fL (80.0-100.0); MONOCYTES 8.3 % (1.0-8.0); PLATELET COUNT 151 thou/uL (150-400); POLYS 65.7 % (36.0-66.0); RBC 4.24 mil/uL (4.20-5.00); RDW 14.3 % (10.5-14.5); WBC 6.1 thou/uL (4.0-11.0)
[2017-07-06 04:03] LABS: MANUAL DIFF NO
[2017-07-06 04:15] LABS: CALCIUM 8.3 mg/dL (8.5-10.1); CREATININE 1.9 mg/dL (0.6-1.0); POTASSIUM 4.5 mmol/L (3.5-5.1)
[2017-07-06 04:29] LABS: DIGOXIN 1.3 ng/mL (0.9-2.0)
[2017-07-06 08:04] VITALS: BP 102/58
[2017-07-06] MEDS ORDERED: ALDACTONE25 MG PO (10:27)
[2017-07-06] MEDS ORDERED: IMDUR 30 MG TAB30 M1 PO (10:27)
[2017-07-06] MEDS ORDERED: COREG6.25 MG PO (10:27)
[2017-07-06] MEDS ORDERED: MIRALAX17 GM PO (10:28)
[2017-07-06 12:03] VITALS: BP 92/47
[2017-07-06 17:11] VITALS: BP 112/64
== END 2017-07-06 17:26 | DRG 682 ==
LOC: 2N 22:27
PROVIDERS: Family Medicine; Internal Medicine Cardiovascular Disease; Nurse Practitioner Family
DX: N17.9 Acute kidney failure, unspecified (principal); E43 Unspecified severe protein-calorie malnutrition; I50.23 Acute on chronic systolic (congestive) heart failure; I13.0 Hypertensive heart and chronic kidney disease with heart failure and stage 1 through stage 4 chronic kidney disease, or unspecified chronic kidney disease; I25.10 Atherosclerotic heart disease of native coronary artery without angina pectoris; N18.9 Chronic kidney disease, unspecified; E03.9 Hypothyroidism, unspecified; E78.5 Hyperlipidemia, unspecified; I25.5 Ischemic cardiomyopathy; I48.2 Chronic atrial fibrillation; Z68.22 Body mass index [BMI] 22.0-22.9, adult; Z95.5 Presence of coronary angioplasty implant and graft; Z85.828 Personal history of other malignant neoplasm of skin; Z87.891 Personal history of nicotine dependence; Z98.49 Cataract extraction status, unspecified eye
CPT/HCPCS: 10081

== ENCOUNTER 2018-03-04 07:45 | Inpatient (IN) | payer OTHER ==
[~2018-03-04] VITALS: Ht 170.2 cm; Wt 63.6 kg
[2018-03-04] VITALS (50 sets, daily range): BP systolic 78–133; BP diastolic 52–106
--- NOTE | ~2018-03-04 | HC ---
[facility] [place] [address] CONSULTATION Name: SUSAN ULLOA Room #: 237-P ADM IN M.R.#: [id number] Admission: 03/04/18 Attend Phys: Talib Lopez MD Discharge: Date of : 38 Report #: [id number] THIS REPORT FOR: //name// CC: FAM unknown Talib Carlisle MD DATE OF SERVICE: 03/04/2018 TYPE OF REPORT: Cardiology consultation. HISTORY OF PRESENT ILLNESS: The patient is a 77-year-old single white female who was admitted complaining of shortness of breath. The patient had a coronary stent placed in 2000 and 2001. She presented to [facility] in 2014 with atrial fibrillation converted to sinus rhythm. She was anticoagulated with Xarelto. However, she developed a junctional rhythm, was taken off of sotalol. She is admitted in 2016 with atrial fibrillation to [facility]. An echocardiogram showing ejection fraction of only 30%. She was placed on digoxin for rate control. I performed a repeat heart catheterization in January of 2017 after she was noted to have an abnormal stress test. No ventriculogram was performed. There was a 50% narrowing of the left main artery, the stent in the LAD was subtotally occluded with minimal antegrade flow, circumflex only 50% stenosis, the right coronary has 60% stenosis. I recommended medical therapy. She is felt to have an ischemic cardiomyopathy but decided not to implant a defibrillator because of her advanced age and poor mobility. She was not given an LIONEL inhibitor nor ARB because of low blood pressure in the past. She has not given spironolactone because of chronic kidney disease. She was last admitted here to [facility] in June with shortness of breath. I actually saw her in September when she was doing well. Her rate of atrial fibrillation was controlled. Fortunately, the patient was not smoking. Recently, however, she has had increasing shortness of breath. She has had a swelling of her feet. She apparently recently went to the Emergency Room in [place], [place]. She was brought here to [facility] by ambulance. She was given a breathing treatment, was started on Lasix. I was asked to see her for further evaluation and treatment. PAST MEDICAL HISTORY: Significant for mastoidectomy. She has had previous skin cancer removal, thyroidectomy, cataract extraction and hypothyroid. CURRENT MEDICATIONS: Consists of carvedilol, spironolactone, Lasix, Synthroid, Xarelto, digoxin, ropinirole and lisinopril. ALLERGIES: She has no known drug allergies. FAMILY HISTORY: Heart disease runs in family. [address] [address] CONSULTATION Name: SUSAN ULLOA ARCO Room #: 237-P [facility] IN M.R.#: [id number] Admission: 03/04/18 Attend Phys: Talib Lopez MD Discharge: Date of : 38 Report #: [id number] SOCIAL HISTORY: She is single. Previous smoker. No alcohol abuse. REVIEW OF SYSTEMS: She has had no history of stroke. She does have asthma. She uses inhaler. She has oxygen at home. No history of liver disease. She has chronic kidney disease. She had a skin cancer in the past. No psychiatric illness. PHYSICAL EXAMINATION: GENERAL: Revealed an elderly female, lying in bed. She appeared in no acute distress. VITAL SIGNS: She had blood pressure of 104/66, pulse 98. She was afebrile. HEENT: She was anicteric. Conjunctivae appear pink, mucous members moist. NECK: Veins do not appear distended. CHEST: Revealed decreased breath sounds at bases. CARDIOVASCULAR: Irregular rhythm. ABDOMEN: Soft. EXTREMITIES: Had no edema. SKIN: Cool and dry. NEUROLOGICAL: Nonfocal. RADIOLOGICAL DATA: She had an echocardiogram in the hospital today that I read and showed a pericardial effusion of a small but large pleural effusion. Ejection fraction was only 25%; biatrial enlargement and moderate aortic, mitral and tricuspid insufficiency. Her workup in the Emergency Room today, she had portable chest x-ray that showed cardiomegaly, interstitial edema and bilateral effusions. LABORATORY DATA: Potassium is 6.3. Her creatinine is 2.6, which is up from 2.3 year ago. Her renal function studies are normal. Her SGOT 3956 and SGPT . Her bilirubin is 1.9 and alkaline phosphatase 96. Troponin 0.06. T4 1.3. Her white blood cell count 13.2 and hemoglobin 16.6. IMPRESSION AND RECOMMENDATIONS: 1. Cardiomyopathy. Noted to be severe. The patient has been on an angiotensin-converting enzyme inhibitor, beta rodriguez, digoxin and spironolactone. Her ECG shows a wide complex tachycardia. The patient might benefit from left ventricular lead. I will consult Electrophysiology Service. 2. Coronary artery disease. No recent angina. The patient has had previous stents. 3. Chronic kidney disease. Consider Nephrology consult. 4. Atrial fibrillation. Rate controlled with beta rodriguez and digoxin. The patient has been anticoagulated. 5. History of tobacco abuse. 6. Chronic obstructive pulmonary disease. 7. Previous tobacco. 8. Pleural effusion. I would hold Meet for pleural thoracentesis. [facility] [address] [place] [address] CONSULTATION Name: SUSAN ULLOA ARCO Room #: 237-P [facility] IN M.R.#: [id number] Admission: 03/04/18 Attend Phys: Talib Lopez MD Discharge: Date of : 38 Report #: [id number] 9. Elevated liver function studies. Suspect vascular congestion. Consider liver ultrasound. <ELECTRONICALLY SIGNED> By: Perry Ambrocio MD, FACC 03/05/18 0810 1725 2143 Perry Ambrocio MD, FACC /nt
--- NOTE | ~2018-03-04 | PATH ---
[facility] [address] [address] PATHOLOGY RPT PROCEDURE Name: SUSAN ULLOA Room #: 364-P ADM IN M.R.#: [id number] Admission: 03/04/18 Date of : 38 Discharge: Report #: [id number] Path Case #: [id number] Note [facility] Accession Number: [id number] TESTS RESULT FLAG UNITS REF RANGE LAB Clinician Provided Cytology Information No. of containers..01 Other (Miscellaneous) Source: PLEURAL FLUID DIAGNOSIS: 02 PLEURAL FLUID NEGATIVE FOR MALIGNANT CELLS. REACTIVE MESOTHELIAL CELLS ARE PRESENT. FEW CHRONIC INFLAMMATORY CELLS PRESENT IN THE BACKGROUND. Signed out by: 02 Jessie Ross MD, Pathologist NPI- [id number] Performed by: Adryan Briceno, Dials Supervisor ([facility]) Gross description: 01 25 ML, YELLOW, CLEAR /LCS FLAG LEGEND: L-Low Normal,H-High Normal,LL-Alert Low,HH-Alert High <-Panic Low,>-Panic High,A-Abnormal,AA-Critical Abnormal Performed at: [address] [place] [address] Yogi Keith MD, [address] [address] Jessie Ross MD, Performed at: [address], [place], [place] [id number] MD Yogi Keith MD Phone: [phone]
--- NOTE | ~2018-03-04 | HC ---
[facility] [place] [address] CONSULTATION Name: SUSAN ULLOA Room #: 355-P ADM IN M.R.#: [id number] Admission: 03/04/18 Attend Phys: aTlib Lopez MD Discharge: Date of : 36 Report #: [id number] THIS REPORT FOR: //name// CC: FAM unknown Talib Lopez DATE OF SERVICE: 03/04/2018 NEPHROLOGY CONSULTATION REASON FOR CONSULTATION: Acute on chronic renal failure. HISTORY OF PRESENT ILLNESS: A 77-year-old patient known to our service with severe end-stage cardiomyopathy, extremely low ejection fraction, chronic atrial fibrillation, who presents with progressive weakness, shortness of breath, findings of heart failure, markedly elevated liver function studies and rising creatinine with hyperkalemia and no urine output. PAST MEDICAL HISTORY: We initially saw this patient 13 months ago at which time she had chronic kidney disease and cardiorenal syndrome with very severe and uncompromised renal function and a creatinine baseline of about 2 with very little muscle mass. It was felt at that time that she would not be a candidate for any kind of chronic dialysis therapies as her cardiac performance is extremely poor. Since that time, she has had further deterioration, currently pretty much out of bed and bed to chair existence, stream, exertional dyspnea, shortness of breath, weakness, etc. Condition progressed. She became progressively short-winded and came to the hospital where she was found with the above problems. PAST MEDICAL HISTORY: She has a longstanding severe ischemic cardiomyopathy as well outlined in the charts with ejection fraction of 10-15% more than a year ago. She has had previous thyroidectomy, history of hypothyroidism, some degree of COPD, history of very heavy cigarette smoking. FAMILY HISTORY: Positive for heart disease. SOCIAL HISTORY: She lives in assisted living. REVIEW OF SYSTEMS: GENERAL: She is extremely weak. EYES: Her vision is okay. ENT: Hearing okay. No mouth sores. ENDOCRINE: No diabetes. She does have hypothyroidism. RESPIRATORY: Easily short-winded, maybe can take a few steps at best. CARDIAC: No chest pain. NEUROLOGIC: Just extreme weakness. [facility] [address] [place] [address] CONSULTATION Name: SUSAN ULLOA CUMMING Room #: 355-P [facility] IN ..#: [id number] Admission: 03/04/18 Attend Phys: Talib Lopez MD Discharge: Date of : 36 Report #: [id number] GASTROINTESTINAL: Appetite has been poor. No nausea, vomiting, bloody stool. GENITOURINARY: No dysuria, but she is making very little if any urine. PHYSICAL EXAMINATION: GENERAL: This is a frail elderly woman. Speech is a little bit slurred. SKIN: Shows poor turgor. SKELETAL: Somewhat cachectic. HEENT: Extraocular movements are full. No scleral icterus. Hearing and vision intact. Mucous membranes dry. NECK: Supple, no JVD is appreciated. CHEST: Shows crackles long-term up the lung bases. HEART: Rapid and irregular. ABDOMEN: Soft and nontender. EXTREMITIES: Show no edema. Peripheral pulses diminished. LABORATORY DATA: Hemoglobin 16.6. Sodium 139, potassium 6.3, chloride 107, bicarbonate 20, creatinine 2.6, BUN 63, AST 3956, ALT 3882, bilirubin 1.9, albumin 2.4. Chest x-ray personally examined shows evidence of congestive heart failure. ASSESSMENT AND PLAN: 1. Acute kidney injury. She has renal shutdown in the setting of cardiogenic shock. Lasix drip is being attempted. I doubt will be very successful. I do not believe dialysis treatments are feasible given her apparent end of the line condition. I believe that she could not safely undergo any sort of dialysis therapy. At this point, we would recommend palliative and comfort care alone. 2. End-stage ischemic cardiomyopathy. 3. Shock liver secondary to cardiogenic shock and right-sided heart failure. 4. Advanced chronic obstructive pulmonary disease. <ELECTRONICALLY SIGNED> By: Henry Bustillo MD 03/07/18 1046 [id number] 1758 Henry Bustillo MD /nt
--- NOTE | ~2018-03-04 | EKG ---
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: [facility] : 1940 Requested By: Beau Laruent Order Number: [id number] MD: Gary Aranda Measurements Intervals [place] Rate: 131 P: GA: QRS: -39 QRSD: 139 T: 144 QT: 332 QTc: 491 Interpretive Statements Atrial fibrillation with a rapid ventricular response Left bundle branch block Compared to ECG 07/03/2017 06:24:35 Heart rates have increased Electronically Signed On 03-04-2018 9:03:30 CDT by Gary Aranda [email or web address] <ELECTRONICALLY SIGNED> By: Gary Aranda MD, [facility] 03/04/1803 D: 06/831 1 Gary Aranda MD, FACC /EPI
--- NOTE | ~2018-03-04 | 2DMMODE ---
[facility] [address] [place] [address] 2 D/M-MODE ECHOCARDIOGRAM Name: SUSAN ULLOA RICHWOODS Room #: 237-P ADM IN M.R.#: [id number] Admission: 03/04/18 Attend Phys: Talib Lopez, Discharge: Date of : 36 Date of Service: 03/04/18 1539 Report #: [id number] THIS REPORT FOR: //name// APPROVED REPORT Study performed: 03/04/2018 13:36:15 EXAM: Comprehensive 2D, Doppler, and color-flow Echocardiogram Patient Location: ICU Room #: [facility] Status: routine BSA: 1.71 HR: 126 bpm BP: 133/106 mmHg Rhythm: Atrial Fibrillation Other Information Study Quality: Good Indications Cardiomyopathy Short of breath, Afib. Hx: TX, stents, CHF, COPD, HTN, HLP 2D Dimensions RVDd: 41.53 mm LVEF(%): 23.48 (>50%) IVSd: 10.34 (7-11mm) LVOT Diam: 19.97 (18-24mm) LVDd: 49.01 mm PWd: 10.32 (7-11mm) Ascending Ao: 31.22 (22-36mm) LVDs: 43.72 (25-40mm) Aortic Root: 31.02 mm Wise's LVEF: 23.48 % Volumes Left Atrial Volume (Systole) Single Plane 4CH: 52.79 mL Single Plane 2CH: 64.06 mL LA ESV Index: 37.00 mL/m2 Aortic Valve AoV Peak Jacques.: 1.46 m/s AO Peak Gr.: 15.20 mmHg LVOT Max P.69 mmHg LVOT Max V: 0.65 m/s OPAL Vmax: 1.39 cm2 Mitral Valve MV Decel. Time: 113.40 ms [facility] [place] [address] 2 D/M-MODE ECHOCARDIOGRAM Name: SUSAN ULLOA RICHWOODS Room #: 237-P [facility] IN ..#: [id number] Admission: 03/04/18 Attend Phys: Talib Lopez, Discharge: Date of : 36 Date of Service: 03/04/18 1539 Report #: [id number] E Max Jacques.: 0.93 m/s Pulmonary Valve PV Peak Jacques.: 1.11 m/s PV Peak Gr.: 4.97 mmHg Tricuspid Valve TR Peak Jacques.: 2.98 m/s RAP Estimate: 10.00 mmHg TR Peak Gr.: 35.44 mmHg Left Ventricle Left ventricle is mildly dilated. There is global hypokinesis of the left ventricle. There is normal left ventricular wall thickness. Left ventricular systolic function is severely decreased. LVEF is 25%. This study is not technically sufficient to allow evaluation of the LV diastolic function due to atrial fibrillation. Right Ventricle Right ventricle is mildly dilated. Right ventricle is hypokinetic. Atria Left atrium is moderately dilated. Right atrium is moderately dilated. Aortic Valve Aortic valve is mildly calcified. Moderate aortic regurgitation. There is no aortic valvular stenosis. Mitral Valve Mitral valve leaflets are calcified. Moderate mitral regurgitation. No evidence of mitral valve stenosis. Tricuspid Valve The tricuspid valve is normal in structure. Moderate tricuspid regurgitation. Estimated PAP is 45mmHg. Pulmonic Valve The pulmonary valve is normal in structure. Mild to moderate pulmonic regurgitation. Great Vessels The aortic root is normal in size. The ascending aorta is normal in size. IVC is borderline dilated and collapses <50% with [place] [address] 2 D/M-MODE ECHOCARDIOGRAM Name: SUSAN ULLOA RICHWOODS Room #: 237-P [facility] IN .R.#: [id number] Admission: 03/04/18 Attend Phys: Talib Lopez, Discharge: Date of : 36 Date of Service: 03/04/18 1539 Report #: [id number] Pericardial effusion noted. Left and right pleural effusions noted. <Conclusion> LVEF is 25%. Left atrium is moderately dilated. Right atrium is moderately dilated. Moderate aortic regurgitation. Moderate mitral regurgitation. Moderate tricuspid regurgitation. Estimated PAP is 45mmHg. Pericardial effusion noted. Left and right pleural effusions noted. <ELECTRONICALLY SIGNED> By: Perry Ambrocio MD, FACC 03/04/18 1539 1539 1539 Perry Ambrocio MD, FACC /INF
[~2018-03-04 07:45] MED LIST changes: +COREG6.25 MG PO; +IMDUR 30 MG TAB30 M1 PO; +MIRALAX17 GM PO
[2018-03-04 08:22] LABS: URINE BILIRUBIN NEGATIVE (Negative); URINE BLOOD 1+ (Negative); URINE CLARITY CLOUDY; URINE COLOR YELLOW; URINE GLUCOSE-RANDOM* NEGATIVE (Negative); URINE KETONES NEGATIVE (Negative); URINE NITRITE-REFLEX NEGATIVE (Negative); URINE PROTEIN (DIPSTICK) TRACE (Negative); URINE UROBILINOGEN 0.2 E.U./dl (0.2-1.0)
[2018-03-04 08:27] LABS: URINE LEUKOCYTES-REFLEX 3+ (Negative)
[2018-03-04 08:28] LABS: BACTERIA-REFLEX >30 Many /HPF (None Seen); CASTS None Seen /LPF (None Seen); CRYSTALS None Seen /LPF (None Seen); SQUAMOUS >10 Many /LPF (0-3); URINE RBC None Seen /HPF (0-2); URINE WBC-REFLEX >25 Many /HPF (0-5)
[2018-03-04 08:51] LABS: ABSOLUTE NEUTROPHILS 11.2 thou/uL (1.4-8.2); EOSINOPHILS 0.1 % (0.0-3.0); HEMOGLOBIN 16.6 gm/dL (12.0-15.0); LYMPHOCYTES 5.6 % (24.0-44.0); MCH 31.8 pg (26.0-34.0); MCHC 32.6 g/dL (28.0-37.0); MCV 97.4 fL (80.0-100.0); MONOCYTES 9.5 % (1.0-8.0); PLATELET COUNT 152 thou/uL (150-400); POLYS 84.8 % (36.0-66.0); RBC 5.24 mil/uL (4.20-5.00); WBC 13.2 thou/uL (4.0-11.0)
[2018-03-04 09:13] LABS: MAGNESIUM 2.7 mg/dL (1.8-2.4); TROPONIN-I 0.06 ng/mL (<0.06)
[2018-03-04 10:35] LABS: BE(vivo) -10.4 mmol/L (-2 to +3); HCO3 15.4 mmol/L (22.0-26.0); PCO2 34.1 mmHg (35.0-45.0); PO2 88.4 mmHg (80.0-100.0); pH 7.272 (7.360-7.450); sO2 95.7 % (92.0-98.0)
[2018-03-04 10:53] LABS: FIBRINOGEN 265.8 mg/dL (210-360); INR 1.7; PROTIME 17.3 Seconds (9.3-11.4)
[2018-03-04 11:04] LABS: ALBUMIN 2.4 g/dL (3.4-5.0); CALCIUM 8.2 mg/dL (8.5-10.1); CREATININE 2.6 mg/dL (0.6-1.0); TOTAL BILIRUBIN 1.9 mg/dL (<0.1-1.0); TOTAL PROTEIN 5.9 g/dL (6.4-8.2)
[2018-03-04 11:06] LABS: POTASSIUM 6.3 mmol/L (3.5-5.1)
[2018-03-04 17:42] LABS: CALCIUM 8.7 mg/dL (8.5-10.1); CREATININE 2.7 mg/dL (0.6-1.0)
[2018-03-04 20:29] LABS: CREATININE 2.7 mg/dL (0.6-1.0); POTASSIUM 4.8 mmol/L (3.5-5.1)
[2018-03-05] VITALS (22 sets, daily range): BP systolic 74–106; BP diastolic 48–76
[2018-03-05 04:49] LABS: ALBUMIN 2.3 g/dL (3.4-5.0); CALCIUM 7.9 mg/dL (8.5-10.1); CREATININE 2.4 mg/dL (0.6-1.0); DIGOXIN 0.9 ng/mL (0.9-2.0); POTASSIUM 4.3 mmol/L (3.5-5.1); TOTAL BILIRUBIN 1.1 mg/dL (<0.1-1.0); TOTAL PROTEIN 5.5 g/dL (6.4-8.2)
[2018-03-05 04:55] LABS: HEMATOCRIT 39.8 % (37.0-47.0); HEMOGLOBIN 13.3 gm/dL (12.0-15.0); MCHC 33.5 g/dL (28.0-37.0); MCV 95.7 fL (80.0-100.0); RBC 4.16 mil/uL (4.20-5.00); RDW 14.7 % (10.5-14.5); WBC 10.3 thou/uL (4.0-11.0)
[2018-03-05 09:32] LABS: APTT 30.9 Seconds (24.5-32.8); FIBRINOGEN 227.5 mg/dL (210-360); INR 1.5; PROTIME 15.4 Seconds (9.3-11.4)
[2018-03-05 12:03] LABS: CLARITY SLIGHTLY CLOUDY; COLOR YELLOW; SOURCE RIGHT CHEST; TOTAL VOLUME 57 mL
[2018-03-05 12:04] LABS: SOURCE RIGHT CHEST
[2018-03-05 12:25] LABS: BF NUCLEATED CELLS 589; BF RBC 857
[2018-03-05 12:57] LABS: BF MACROPHAGE 53; BF NEUTROPHILS 12
[2018-03-06] VITALS (8 sets, daily range): BP systolic 91–121; BP diastolic 53–76
[2018-03-06 05:53] LABS: HEMATOCRIT 42.9 % (37.0-47.0); HEMOGLOBIN 14.4 gm/dL (12.0-15.0); MCH 31.8 pg (26.0-34.0); MCHC 33.5 g/dL (28.0-37.0); MCV 94.8 fL (80.0-100.0); RBC 4.52 mil/uL (4.20-5.00); RDW 14.9 % (10.5-14.5); WBC 10.3 thou/uL (4.0-11.0)
[2018-03-06 06:06] LABS: ALBUMIN 2.2 g/dL (3.4-5.0); CALCIUM 7.6 mg/dL (8.5-10.1); CREATININE 2.2 mg/dL (0.6-1.0); PHOSPHORUS 4.3 mg/dL (2.5-4.9); POTASSIUM 3.7 mmol/L (3.5-5.1)
[2018-03-06 09:22] LABS: ALBUMIN 2.3 g/dL (3.4-5.0); DIRECT BILIRUBIN 0.5 mg/dL (<0.1-0.3); TOTAL BILIRUBIN 1.1 mg/dL (<0.1-1.0); TOTAL PROTEIN 5.2 g/dL (6.4-8.2)
[2018-03-06 09:49] LABS: INR 1.4; PROTIME 14.6 Seconds (9.3-11.4)
[2018-03-06 10:11] LABS: BODY FLUID ALBUMIN 0.9 g/dL (()); BODY FLUID AMYLASE 21 U/L (()); BODY FLUID GLUCOSE 114 mg/dL (()); BODY FLUID LDH 166 IU/L (()); BODY FLUID PROTEIN 1.5 g/dL (())
[2018-03-07 05:55] VITALS: BP 122/54
[2018-03-07 06:54] LABS: HEMATOCRIT 42.6 % (37.0-47.0); HEMOGLOBIN 14.1 gm/dL (12.0-15.0); MCH 31.6 pg (26.0-34.0); MCV 95.7 fL (80.0-100.0); RBC 4.45 mil/uL (4.20-5.00); RDW 14.9 % (10.5-14.5); WBC 9.2 thou/uL (4.0-11.0)
[2018-03-07 07:03] LABS: INR 1.4; PROTIME 14.5 Seconds (9.3-11.4)
[2018-03-07 07:15] LABS: ALBUMIN 2.4 g/dL (3.4-5.0); CALCIUM 7.9 mg/dL (8.5-10.1); CREATININE 1.7 mg/dL (0.6-1.0); PHOSPHORUS 2.9 mg/dL (2.5-4.9); POTASSIUM 3.8 mmol/L (3.5-5.1); TOTAL PROTEIN 5.7 g/dL (6.4-8.2)
[2018-03-07 07:18] LABS: ALBUMIN 2.4 g/dL (3.4-5.0); DIRECT BILIRUBIN 0.5 mg/dL (<0.1-0.3); TOTAL BILIRUBIN 1.1 mg/dL (<0.1-1.0); TOTAL PROTEIN 5.3 g/dL (6.4-8.2)
[2018-03-07 07:25] VITALS: BP 107/55
[2018-03-07 15:44] VITALS: BP 101/57
[2018-03-07 20:37] VITALS: BP 105/47
[2018-03-08 04:40] VITALS: BP 112/58
[2018-03-08 06:26] LABS: HEMATOCRIT 42.5 % (37.0-47.0); HEMOGLOBIN 14.1 gm/dL (12.0-15.0); MCH 31.6 pg (26.0-34.0); MCHC 33.2 g/dL (28.0-37.0); MCV 95.2 fL (80.0-100.0); RBC 4.47 mil/uL (4.20-5.00); WBC 8.1 thou/uL (4.0-11.0)
[2018-03-08 06:44] LABS: CALCIUM 8.3 mg/dL (8.5-10.1); CREATININE 1.5 mg/dL (0.6-1.0); MAGNESIUM 1.9 mg/dL (1.8-2.4); POTASSIUM 3.9 mmol/L (3.5-5.1)
[2018-03-08 06:53] LABS: ALBUMIN 2.3 g/dL (3.4-5.0); DIRECT BILIRUBIN 0.3 mg/dL (<0.1-0.3); TOTAL BILIRUBIN 1.1 mg/dL (<0.1-1.0); TOTAL PROTEIN 5.9 g/dL (6.4-8.2)
[2018-03-08 08:00] VITALS: BP 111/50
[2018-03-08 12:00] VITALS: BP 119/46
[2018-03-08] MEDS ORDERED: CARVEDILOL3.125 MG PO (12:04)
[2018-03-08] MEDS ORDERED: LASIX 40 MG TAB40 MG PO (12:04)
== END 2018-03-08 15:00 | DRG 871 ==
LOC: ER 07:45 → EROBS 09:11 → ICU 09:11 → 3W 03-06 12:43
PROVIDERS: Emergency Medicine; Hospitalist; Internal Medicine; Internal Medicine Cardiovascular Disease; Internal Medicine Gastroenterology; Internal Medicine Nephrology
PROC: 0W9B3ZZ Drainage of Left Pleural Cavity, Percutaneous Approach (ICD-10-PCS; principal; 2018-03-05)
DX: A41.9 Sepsis, unspecified organism (principal); J96.01 Acute respiratory failure with hypoxia; J18.9 Pneumonia, unspecified organism; R57.0 Cardiogenic shock; K72.00 Acute and subacute hepatic failure without coma; I50.23 Acute on chronic systolic (congestive) heart failure; N39.0 Urinary tract infection, site not specified; J90 Pleural effusion, not elsewhere classified; D68.9 Coagulation defect, unspecified; I13.0 Hypertensive heart and chronic kidney disease with heart failure and stage 1 through stage 4 chronic kidney disease, or unspecified chronic kidney disease; J44.0 Chronic obstructive pulmonary disease with (acute) lower respiratory infection; R65.20 Severe sepsis without septic shock; I25.10 Atherosclerotic heart disease of native coronary artery without angina pectoris; E78.5 Hyperlipidemia, unspecified; I48.91 Unspecified atrial fibrillation; E03.9 Hypothyroidism, unspecified; N18.9 Chronic kidney disease, unspecified; I25.5 Ischemic cardiomyopathy; R74.0 Nonspecific elevation of levels of transaminase and lactic acid dehydrogenase [LDH]; I87.8 Other specified disorders of veins; E87.5 Hyperkalemia; Z66 Do not resuscitate; Z51.5 Encounter for palliative care; K76.1 Chronic passive congestion of liver; K80.20 Calculus of gallbladder without cholecystitis without obstruction; M62.84 Sarcopenia; I25.2 Old myocardial infarction; Z95.5 Presence of coronary angioplasty implant and graft; Z87.891 Personal history of nicotine dependence; Z82.49 Family history of ischemic heart disease and other diseases of the circulatory system; Z98.49 Cataract extraction status, unspecified eye; Z79.899 Other long term (current) drug therapy
CPT/HCPCS: 10078; 10879; 27000